=== PATIENT | female | born 1960 | race Caucasian/White ===

== ENCOUNTER → 2020-05-09 | Outpatient (CLI) | payer OTHER | END | disposition home or self-care (01) | LOC: MRI 09:58 | PROVIDERS: ATTEND General Practice | DX: G31.84 Mild cognitive impairment of uncertain or unknown etiology (principal); F33.1 Major depressive disorder, recurrent, moderate | CPT/HCPCS: 70551 ==

== ENCOUNTER 2021-05-05 19:56 | Emergency (ER) | payer OTHER ==
[~2021-05-05] VITALS: Ht 154.9 cm; Wt 70.3 kg
[~2021-05-05 19:56] MED LIST: CYCLOBENZAPRINE10 MG PO; DICLOFENAC POTA50 MG PO; GABAPENTIN100 MG PO
[2021-05-05] MEDS ORDERED: NEURONTIN600 M1 PO (20:07)
== END 2021-05-05 21:48 | disposition home or self-care (01) ==
LOC: ER 19:56
DX: R42 Dizziness and giddiness (principal)

== ENCOUNTER 2022-07-03 18:00 | Emergency (ER) | payer OTHER ==
[~2022-07-03] VITALS: Ht 154.9 cm; Wt 69.9 kg
[~2022-07-03 18:00] MED LIST changes: +NEURONTIN600 M1 PO
== END 2022-07-03 23:22 | disposition home or self-care (01) ==
LOC: ER 18:00
DX: J45.909 Unspecified asthma, uncomplicated (principal)

== ENCOUNTER 2025-03-03 16:22 | Emergency (ER) | payer OTHER ==
[~2025-03-03] VITALS: Ht 157.5 cm; Wt 60.8 kg
[2025-03-03] MEDS ORDERED: KETOROLAC TROMETHAMINE 30 MG VIAL IM ONE (16:45)
[2025-03-03] MEDS ORDERED: SALINE MIST45 ML NASAL (17:49)
[2025-03-03 18:57] LABS: BASO % 0.4 % (0.1-1.2); EOS # 0.06 (0.04-0.54); EOS % 1.1 % (0.7-7.0); LYMPH # 1.93 (1.18-3.74); LYMPH % 35.3 % (19.3-53.1); MEAN PLATELET VOLUME 10.20 fl (9.4-12.4); MONO # 0.40 (0.24-0.82); MONO % 7.3 % (4.7-12.5); NEUT # 3.04 (1.56-6.13); NEUT % 55.7 % (34.0-71.1); RED CELL DISTRIBUTION WIDTH 12.2 % (11.6-14.4)
[2025-03-03 19:49] LABS: ALT/SGPT 21.0 U/L (12-78); AST/SGOT 11.0 U/L (15-37); BILIRUBIN TOTAL 0.35 mg/dL (0.3-1.2); BUN CREA RATIO 31.0 (7.0-25.0); CREATININE SERUM 0.84 mg/dL (0.55-1.02); GFR 68.48; GLOBULINA 3.8 G/DL (2.4-3.5); GLUCOSE FASTING 98.0 mg/dL (65-100); OSMOLALITY SERUM 292.0 MOSM/KG (275-295)
[2025-03-03 19:51] LABS: URINE APPEARANCE Clear; URINE BILIRRUBIN Negative (NEGATIVE); URINE COLOR Yellow; URINE GLUCOSE Negative (NEGATIVE); URINE KETONE Negative (NEGATIVE); URINE LEUKOCYTE Moderate; URINE NITRATE Negative; URINE PROTEIN Negative (NEGATIVE); URINE UROBILINOGEN 0.2 E.U./dl
[2025-03-03 19:55] LABS: URINE BACTERIA 112.0 uL (0.0-1933); URINE EPITHELIAL CELLS 7.1 uL (0.0-38.8); URINE RBC 3.6 uL (0.0-20.8); URINE WBC 24.8 uL (0.0-23.2)
[2025-03-03 20:11] LABS: URINE BLOOD TRACE; URINE CAST 0.00 uL (0.0-1.40)
== END 2025-03-03 22:56 | disposition home or self-care (01) ==
LOC: ER 16:22
PROVIDERS: Preventive Medicine Public Health & General Preventive Medicine
DX: K62.89 Other specified diseases of anus and rectum (principal); M76.01 Gluteal tendinitis, right hip
CPT/HCPCS: 36415; 74177; Q9965